=== PATIENT | female | born 1970 | race Caucasian/White ===

== ENCOUNTER 2017-08-04 17:33 | Emergency (ER) | payer OTHER ==
[2017-08-04] MEDS: SOD CHLORIDE 0.9% 500 ML IV (19:10)
[2017-08-04] MEDS: LIDOCAINE/MYLANTA 40 ML BTL PO (19:12)
[2017-08-04 19:32] LABS: ADD UMIC NO; UR ASCORBIC ACID NEGATIVE (NEGATIVE); UR BILIRUBIN (Dip) NEGATIVE (NEGATIVE); UR BLOOD (Dip) NEGATIVE (NEGATIVE); UR CLARITY CLEAR (CLEAR); UR COLOR STRAW (YELLOW); UR GLUCOSE (Dip) NEGATIVE (NEGATIVE); UR KETONES (Dip) NEGATIVE (NEGATIVE); UR LEUKOCYTE ESTERASE (Dip) NEGATIVE Leu/ul (NEGATIVE); UR NITRITE (Dip) NEGATIVE (NEGATIVE); UR SPECIFIC GRAVITY (Dip) 1.002 (1.003-1.030); UR TOTAL PROTEIN (Dip) NEGATIVE (NEGATIVE); UR UROBILINOGEN (Dip) NEGATIVE (NEGATIVE)
[2017-08-04 19:45] LABS: ADD MAN DIFF? NO
[2017-08-04 19:47] LABS: BASOPHILS % 0.4 % (0.0-2.0); EOSINOPHILS # 0.1 10^3/ul (0.0-0.5); HEMATOCRIT 41.5 % (37.0-47.0); HEMOGLOBIN 13.4 g/dl (12.0-16.0); LYMPHOCYTES # 1.6 10^3/ul (0.8-2.9); LYMPHOCYTES % 19.6 % (15.0-51.0); MEAN CORPUSCULAR HEMOGLOBIN 27.3 pg (29.0-33.0); MEAN CORPUSCULAR HGB CONC 32.3 g/dl (32.0-37.0); MEAN CORPUSCULAR VOLUME 84.7 fl (82.0-101.0); MEAN PLATELET VOLUME 10.6 fl (7.4-10.4); MONOCYTE # 0.7 10^3/ul (0.3-0.9); MONOCYTES % 8.3 % (0.0-11.0); NEUTROPHIL # 5.8 10^3/ul (1.6-7.5); NEUTROPHILS % 70.3 % (39.0-77.0); PLATELET COUNT 300 10^3/UL (140-415); RED CELL DISTRIBUTION WIDTH 13.2 % (11.5-14.5)
[2017-08-04 19:47] LABS: WHITE BLOOD COUNT 8.3 10^3/ul (4.8-10.8)
[2017-08-04 20:05] LABS: ALANINE AMINOTRANSFERASE 82 IU/L (13-69); ALBUMIN/GLOBULIN RATIO 1.11; ALKALINE PHOSPHATASE 95 IU/L (42-121); ANION GAP 13 (8-16); ASPARTATE AMINO TRANSFERASE 42 IU/L (15-46); BILIRUBIN,INDIRECT 0.3 mg/dl (0-1.1); BILIRUBIN,TOTAL 0.3 mg/dl (0.2-1.3); BLOOD UREA NITROGEN 10 mg/dl (7-20); CALCIUM 9.2 mg/dl (8.4-10.2); CARBON DIOXIDE 27 mmol/L (21-31); CHLORIDE 102 mmol/L (97-110); CREATININE 0.75 mg/dl (0.44-1.00); GLUCOSE 195 mg/dl (70-220); LIPASE 142 U/L (23-300); POTASSIUM 4.1 mmol/L (3.5-5.1); SODIUM 138 mmol/L (135-144); TOTAL PROTEIN 7.6 g/dl (6.1-8.1)
[2017-08-04 20:17] LABS: TROPONIN-I < 0.012 ng/ml (0.000-0.120)
== END 2017-08-04 21:29 | disposition home or self-care (01) ==
LOC: FTE 17:33
DX: K80.80 Other cholelithiasis without obstruction (principal); R30.0 Dysuria; I10 Essential (primary) hypertension; E11.9 Type 2 diabetes mellitus without complications; Z79.84 Long term (current) use of oral hypoglycemic drugs
CPT/HCPCS: 36415; 76705; 80053; 81003; 81025; 83690; 84484; 85025; 93005; 96360; 99285-25

== ENCOUNTER 2017-10-08 11:58 | Day surgery (SDC) | payer OTHER ==
[~2017-10-08 11:58] MED LIST: CEFAZOLIN 1 GM/50 ML (PMX) 50 ML IVPB
[2017-10-08] MEDS: SOD CHLORIDE 0.9% 1,000 ML IV (13:40)
[2017-10-08] MEDS ORDERED: ROPIVACAINE 0.5 % 30 ML VIAL (14:41)
[2017-10-08] MEDS ORDERED: CEFAZOLIN 1 GM INJ (14:42)
[2017-10-08] MEDS ORDERED: PROPOFOL 0 ML (14:42)
[2017-10-08] MEDS ORDERED: ROCURONIUM 50 MG INJ (14:42)
[2017-10-08] MEDS ORDERED: MIDAZOLAM 1 MG/ML 2 ML INJ (14:43)
[2017-10-08] MEDS ORDERED: OXYCODONE/ACETAMINOPHEN (5/325) TAB PO ×2 (15:00)
[2017-10-08] MEDS ORDERED: EPHEDrine SULFATE 50 MG/5 ML SYG IV (15:00)
[2017-10-08] MEDS ORDERED: DIPHENHYDRAMINE 50 MG INJ IV (15:00)
[2017-10-08] MEDS ORDERED: HYDROmorphONE 1 MG/5 ML IV SYRINGE IV (15:00)
[2017-10-08] MEDS ORDERED: hydrALAzine 20 MG INJ IV (15:00)
[2017-10-08] MEDS ORDERED: HYDROCODONE/APAP (5/325) TAB PO ×2 (15:00)
[2017-10-08] MEDS ORDERED: METOCLOPRAMIDE 10 MG INJ IV (15:00)
[2017-10-08] MEDS ORDERED: FENTAnyl 50 MCG/ML VIAL IV ×3 (15:00)
[2017-10-08] MEDS ORDERED: LABETALOL HCL 20MG INJ IV (15:00)
[2017-10-08] MEDS ORDERED: PHENYLephrine (100 MCG/ML) 5ML SYG (15:07)
[2017-10-08] MEDS ORDERED: PROPOFOL 100 ML (15:12)
[2017-10-08] MEDS ORDERED: ONDANSETRON 4 MG INJ (15:42)
[2017-10-08] MEDS ORDERED: KETOROLAC 30 MG INJ (15:42)
[2017-10-08] MEDS ORDERED: DEXAMETHASONE 4 MG/ML 1 ML INJ (15:42)
[2017-10-08] MEDS ORDERED: METOCLOPRAMIDE 10 MG INJ (15:42)
[2017-10-08] MEDS ORDERED: SUGAMMADEX SODIUM 200 MG/2 ML VIAL IV (15:42)
[2017-10-08] MEDS: HYDROmorphONE 1 MG/5 ML IV SYRINGE IV ×2 (16:23→17:30)
[2017-10-08] MEDS: MEPERIDINE 25 MG INJ IV (16:34)
[2017-10-08] MEDS: ONDANSETRON 4 MG INJ IV (17:29)
== END 2017-10-08 18:54 | disposition home or self-care (01) ==
LOC: SDS 11:58
DX: K80.10 Calculus of gallbladder with chronic cholecystitis without obstruction (principal); E11.9 Type 2 diabetes mellitus without complications; E66.01 Morbid (severe) obesity due to excess calories; Z68.37 Body mass index [BMI] 37.0-37.9, adult
CPT/HCPCS: 47562; 82962; 84703; 88304; 93005